=== PATIENT | female | born 1945 | race Caucasian/White ===

== ENCOUNTER → 2016-05-22 | Outpatient (CLI) | payer MEDICARE | LOC: YCFC.O 09:24 | PROVIDERS: ATTEND Nurse Practitioner Family | DX: I10 Essential (primary) hypertension (principal); E78.2 Mixed hyperlipidemia; E11.9 Type 2 diabetes mellitus without complications ==

== ENCOUNTER → 2016-11-21 | Outpatient (CLI) | payer MEDICARE | LOC: YCFC.O 08:11 | PROVIDERS: ATTEND Nurse Practitioner Family | DX: E78.2 Mixed hyperlipidemia (principal); E11.9 Type 2 diabetes mellitus without complications ==

== ENCOUNTER → 2016-11-26 | Outpatient (CLI) | payer MEDICARE | END | disposition home or self-care (01) | LOC: RESP 10:09 | PROVIDERS: ATTEND Nurse Practitioner Family | DX: R00.1 Bradycardia, unspecified (principal) ==

== ENCOUNTER → 2017-05-27 | Outpatient (CLI) | payer MEDICARE | END | disposition home or self-care (01) | LOC: LAB.O 09:50 | PROVIDERS: ATTEND Nurse Practitioner Family | DX: I10 Essential (primary) hypertension (principal); E78.2 Mixed hyperlipidemia; E11.9 Type 2 diabetes mellitus without complications ==

== ENCOUNTER → 2018-11-13 | Outpatient (CLI) | payer MEDICARE ==
--- NOTE | 2018-11-13 11:58 | CT ---
EXAM DESCRIPTION: Abdomen w/Contrast CLINICAL HISTORY: 73 years Female, LEFT UPPER QUADRANT PAIN COMPARISON: None. TECHNIQUE: CT of the abdomen only was performed with IV contrast. This exam was performed according to our departmental dose-optimization program, which includes automated exposure control, adjustment of the mA and/or kV according to patient size and/or use of iterative reconstruction technique. FINDINGS: No lung base abnormality. Small hiatal hernia. No pneumoperitoneum, adenopathy or ascites. Mural calcification in the abdominal aorta without aneurysm or dissection. Mild diffuse wall thickening left lateral gastric wall. No masslike gastric lesion. No calcified gallstone. Tiny round low-density lesion posteriorly in the right hepatic lobe, too small to characterize but probably representing a cyst. The spleen is not enlarged. The pancreas, adrenals and kidneys are unremarkable. Visualized portions of the small bowel and colon are unremarkable. Degenerative changes in the thoracolumbar spine multiple levels. IMPRESSION: Mild smooth wall thickening involving the left lateral gastric wall, differential considerations include gastritis or gastric ulcer disease. EGD should be considered for further evaluation. No pneumoperitoneum or other acute complication. Atherosclerotic vascular disease. Electronically signed by: Amari Beckford MD 11/13/2018 11:56 AM CDT
== END ==
LOC: LAB.O 09:07
PROVIDERS: ATTEND Nurse Practitioner Family
DX: K31.9 Disease of stomach and duodenum, unspecified (principal)

== ENCOUNTER → 2018-11-25 | Outpatient (CLI) | payer MEDICARE ==
--- NOTE | 2018-11-25 12:50 | RAD ---
PROVIDED CLINICAL HISTORY/REASON FOR EXAM: osteoarthritis of left knee Findings: Number of images: 4 Location: Left knee No acute fracture or dislocation. Moderate medial compartment narrowing with weightbearing No significant joint effusion. Tiny osteophytes are present about the left knee. Lateral tibial translation. IMPRESSION: Left knee osteoarthritis with preferential involvement of the medial compartment. Electronically signed by: Murray Colby MD 11/25/2018 12:48 PM CDT
== END ==
LOC: RAD 10:21
PROVIDERS: ATTEND Nurse Practitioner Family
DX: M17.12 Unilateral primary osteoarthritis, left knee (principal)

== ENCOUNTER → 2018-12-24 | Outpatient (CLI) | payer MEDICARE ==
--- NOTE | 2018-12-24 17:56 | RAD ---
EXAM DESCRIPTION: Pelvis CLINICAL HISTORY: M25.552 COMPARISON: None. TECHNIQUE: AP pelvis. FINDINGS: Calcific atherosclerotic changes observed in the abdominal aorta without evidence of aneurysmal dilatation. Degenerative changes are observed in the lower lumbar spine. The pelvis is intact. No fracturing is detected. The proximal femurs are unremarkable. IMPRESSION: Unremarkable pelvis. Electronically signed by: Orlin Hinson MD 12/24/2018 5:55 PM CDT
== END ==
LOC: RAD 09:31
PROVIDERS: ATTEND Orthopaedic Surgery
DX: M25.552 Pain in left hip (principal)

== ENCOUNTER → 2019-02-25 | Outpatient (CLI) | payer MEDICARE ==
--- NOTE | 2019-02-25 18:13 | US ---
EXAM DESCRIPTION: Gall Bladder: ULTRASOUND. CLINICAL HISTORY: EPIGASTRIC PAIN COMPARISON: CT of the abdomen with contrast November 2018. TECHNIQUE: Transabdominal scanning: Person-scale and Doppler modes. FINDINGS: Gallbladder: normal size, shape, echogenicity; no intraluminal stones or sludge. No fluid around the gallbladder. Borderline wall thickening 3.1 mm Non-tender with transducer pressure. Common bile duct: caliber 6.7 mm borderline dilated. Liver: normal echogenicity; contour liver capsule smooth where seen. 8 x 7 x 6 cm anechoic subcapsular cyst in the right lobe which is nonvascular and posterior acoustic enhancement.. No fluid around the liver. Intrahepatic biliary ducts normal caliber. Doppler hepatopedal flow portal vein.. Long axis right lobe 17.6 cm. Pancreas: normal size and echogenicity. Duct not seen. Aorta: 1.7 cm proximally normal caliber. Right kidney: 8.6 cm long axis. Cortical thickness 7 mm with normal echogenicity. No echogenic stones or hydronephrosis. No perirenal fluid.. IMPRESSION: 1. Gallbladder with borderline thickening of the wall and no intraluminal stones or sludge. No fluid around the wall and nontender. Common bile duct borderline dilated. Consider radionuclide hepatobiliary imaging for evaluation of gallbladder function. No ascites. 2. Liver borderline enlarged with normal echogenicity. 8 mm cyst subcapsular right lobe appears uncomplicated. Normal physiology of the vascular structures and normal duct caliber. Smooth capsule. 3. Pancreas and right kidney unremarkable for patient's age. Proximal aorta normal caliber. Electronically signed by: Mukund Garibay MD 02/25/2019 6:11 PM CDT
== END ==
LOC: US 08:00
PROVIDERS: ATTEND Nurse Practitioner Family
DX: K82.8 Other specified diseases of gallbladder (principal); K76.89 Other specified diseases of liver

== ENCOUNTER → 2019-03-08 | Outpatient (CLI) | payer MEDICARE ==
--- NOTE | 2019-03-08 13:51 | NM ---
EXAM DESCRIPTION: Hepatobiliar w/CCK: Nuclear Medicine. CLINICAL HISTORY: EPIGASTRIC PAIN COMPARISON: Ultrasound gallbladder at 25 February 2019. TECHNIQUE: Patient was given 8.3 mCi of technetium 99 M mebrofenin (Choletec) radiopharmaceutical IV. Anterior gamma camera images were obtained of the right upper quadrant at 5 minute intervals for one hour. The patient was then given 1.5 mcg CCK IV infusion over 30-minute interval. Gallbladder ejection fraction was evaluated by measuring change in radioactivity in the gallbladder, over 30 min interval. FINDINGS: Immediate visualization of the entire liver with radiopharmaceutical. Geometric appearance of attenuation over the upper liver which may be due to patient breast or soft tissue. No abnormal photopenia in the portal region. Intrahepatic ducts are not dilated. Timely visualization of gallbladder with delayed visualization of small bowel. After CCK was given, there were no symptoms reproduced. After 20 minutes of IV infusion, activity decreased in the gallbladder 9%. After 30 minutes of IV infusion, activity decreased in the gallbladder 8%. IMPRESSION: 1. Dilated intrahepatic ducts but timely visualization of the gallbladder excluding cystic duct obstruction. However, delayed visualization of the duodenum. 2. Gallbladder ejection fraction of 9% is well below the normal range indicating significant gallbladder dyskinesia and less likely acalculus, chronic cholecystitis. Electronically signed by: Mukund Garibay MD 03/08/2019 1:50 PM [employer]
== END ==
LOC: NM 07:44
PROVIDERS: ATTEND Nurse Practitioner Family
DX: K87 Disorders of gallbladder, biliary tract and pancreas in diseases classified elsewhere (principal)
CPT/HCPCS: 78227; A9537

== ENCOUNTER 2019-04-09 05:30 | Day surgery (SDC) | payer MEDICARE ==
[2019-04-09] MEDS ORDERED: DEXAMETHASONE INJ 10 MG/ML VIAL ONE (07:00)
[2019-04-09] MEDS ORDERED: PROPOFOL 200 MG/20 ML VIAL IV ONE (07:00)
[2019-04-09] MEDS ORDERED: ePHEDrine SULF 50 MG/ML ONE (07:00)
[2019-04-09] MEDS ORDERED: KETOROLAC TROMETHAMINE INJ 30 MG/ML VIAL ONE (07:00)
[2019-04-09] MEDS ORDERED: LIDOCAINE 1% 10 ML VIAL INJ ONE (07:00)
[2019-04-09] MEDS ORDERED: METOCLOPRAMIDE HCL INJ 10 MG/2 ML VIAL ONE (07:00)
[2019-04-09] MEDS ORDERED: raNITIdine HCL INJ 25 MG/ML VIAL ONE (07:00)
[2019-04-09] MEDS ORDERED: LACTATED RINGERS 1,000 ML ONE (07:19)
[2019-04-09] MEDS ORDERED: BUPIVACAINE 0.25% W/EPI 50 ML VIAL INJ ONE (08:02)
[2019-04-09] MEDS ORDERED: LACTATED RINGERS 1,000 ML IVS ONE (08:17)
[2019-04-09] MEDS ORDERED: ROCURONIUM BROMIDE 10 MG/ML VIAL ONE (08:49)
[2019-04-09] MEDS ORDERED: fentaNYL CITRATE INJ 50 MCG/ML AMP ONE (08:49)
[2019-04-09] MEDS ORDERED: KETAMINE HCL 100 MG/ML VIAL ONE (09:04)
[2019-04-09] MEDS ORDERED: SUGAMMADEX SODIUM 200 MG/2 ML VIAL IV ONE (09:46)
--- NOTE | 2019-04-09 10:09 | OP ---
DATE OF PROCEDURE: 04/09/19 PREOPERATIVE DIAGNOSIS: 1. Biliary dyskinesia. POSTOPERATIVE DIAGNOSIS: 1. Biliary dyskinesia. PROCEDURE: 1. Laparoscopic cholecystectomy. SURGEON: Ac Aguilar MD. ANESTHESIA: General and local. FINDINGS: Significant scarring to the anterior gallbladder, but otherwise anatomy was normal. COMPLICATIONS: None. ESTIMATED BLOOD LOSS: Minimal. SPECIMEN: Gallbladder. CONDITION: Stable. PLAN: Discharge. INDICATION: As stated. PROCEDURE: General anesthesia was induced. The patient was prepped and draped in sterile fashion. Marcaine 0.5% with epinephrine was used at all incision sites. While maintaining upward traction, a marcela was made near the base of the umbilicus. Veress needle was introduced. There was free flow of fluid into the peritoneal cavity which was insufflated to an appropriate level with CO2 gas. The 5 mm trocar was placed followed by the camera. There was no evidence of bleeding or bowel injury. The patient was positioned and subxiphoid and lateral ports were placed. The gallbladder fundus was identified. It was grasped. Anterior adhesions were taken down. We then dissected out the infundibulum. The duct and artery were clearly visualized through the triangle of Calot. We triply ligated. The gallbladder was then dissected off the fossa and totally removed in the EndoCatch bag. There was a thickened area high, possibly a duct of Luschka, although not obvious. It was pretty high for such a thing, but it was extra cauterized. There was nothing to clip. I did not see any bile coming out of it. The gallbladder was removed. The clips were examined and they were intact. There was no bleeding or bile leak. The area was irrigated and all aspirate was clear. The subxiphoid fascia was then closed with 0 Vicryl using the suture passer. It was airtight and non-bleeding. The remaining trocars were removed. There was no bleeding from the trocar sites. The wounds were then closed with Monocryl. Dressings were applied. The patient was awakened and taken to Recovery to be discharged. #[id number] cc: CARTER Zaman
[2019-04-09] MEDS ORDERED: hydrALAZINE HCl 20 MG/ML VIAL IV ONE (10:10)
[2019-04-09] MEDS ORDERED: hydrALAZINE HCl 20 MG/ML VIAL ONE (10:10)
[2019-04-09] MEDS ORDERED: ONDANSETRON INJ 4 MG/2 ML VIAL ONE (10:19)
[2019-04-09] MEDS ORDERED: HYDROmorphone HCL INJ 2 MG/ML VIAL ONE (10:20)
[2019-04-09] MEDS ORDERED: ONDANSETRON INJ 4 MG/2 ML VIAL IV ONE (10:20)
[2019-04-09] MEDS ORDERED: HYDROmorphone HCL INJ 2 MG/ML VIAL IV ONE (10:25)
[2019-04-09 12:30] VITALS: BP 144/46; TEMP 96.7; O2SAT 98
== END 2019-04-09 12:05 | disposition home or self-care (01) ==
LOC: AMB 05:30
PROVIDERS: ATTEND Surgery
DX: K81.1 Chronic cholecystitis (principal); D13.5 Benign neoplasm of extrahepatic bile ducts; I10 Essential (primary) hypertension; E11.9 Type 2 diabetes mellitus without complications; E78.00 Pure hypercholesterolemia, unspecified; Z90.710 Acquired absence of both cervix and uterus; Z79.899 Other long term (current) drug therapy
CPT/HCPCS: 00790; 36416; 47562; 82948; 88304; J0360; J1100; J1170; J1885; J2405; J2765; J2780; J3010; J3490; J7120